=== PATIENT | male | born 1990 | race Caucasian/White ===

== ENCOUNTER 2023-11-03 00:41 | Emergency (ER) | payer OTHER, SELFPAY ==
[2023-11-03] VITALS (10 sets, daily range): BP systolic 110–128; BP diastolic 72–85; PULSE 75–85; RESP 13–16; TEMP 36.6; O2SAT 97–100; BMI 24.4
--- NOTE | 2023-11-03 00:47 | CRLHL7_ITS ---
For Patients: As a result of the Cures Act, medical imaging exams and procedure reports are released immediately into your electronic medical record. You may view this report before your referring provider. If you have questions, please contact your health care provider. INDICATION: Chest pain TECHNIQUE: Chest radiograph 1 view COMPARISON: None FINDINGS: Mediastinum: The central pulmonary arteries are near the upper limits of normal in size. The heart silhouette is normal in size and morphology. Lung: Both lungs are unremarkable in appearance. No sign of pleural effusion seen. No pneumothorax is identified. Bone and Soft tissue: Unremarkable for age. IMPRESSION: 1. No acute cardiopulmonary disease is seen. Dictated by Edgard Vieyra MD @ 11/03/2023 1:31:43 AM Dictated by: Edgard Vieyra MD @ 11/03/2023 01:32:27 (Electronically Signed)
--- NOTE | 2023-11-03 00:48 | ED_ITS ---
HPI - General Adult General Chief complaint: Syncope/Fainted Stated complaint: syncope Time Seen by Provider: 11/03/23 00:46 History of Present Illness HPI narrative: Patient is a 33-year-old woman who is having a back massage by his sandip when he felt like his lips were tingling any felt like he was going to pass out. He felt like his pulse was very slow and he nearly passed out 3 or 4 times before the ambulance arrived. He noted his pulse was in the 40s at times but did picker tender into the 60s. His initial blood pressure he states was 60 systolic. He describes no chest pain orthopnea no PND no nausea no vomiting no fevers no chills. He otherwise feeling completely normal now. He does admit to using marijuana tonight which is a daily occurrence. No drugs or alcohol otherwise. He has no chronic medical issues and no home medications. Related Data Home Medications Medication Instructions Recorded Confirmed nugenix 11/03/23 Allergies Allergy/AdvReac Type Severity Reaction Status Date / Time No Known Drug Allergies Allergy Verified 11/03/23 00:50 Review of Systems Status of ROS: Reports: 10 or more systems reviewed and unremarkable except as noted in History and below [facility] Social History Non-prescribed substance use: marijuana (any form) Exam Narrative: Exam Narrative: EXAM GENERAL: Patient appears comfortable and well. EYES: No scleral icterus. ENT: Tympanic membranes and oropharynx normal. THYROID: no thyroid nodules or thyromegaly. LYMPH: No supraclavicular or cervical lymphadenopathy. SKIN: Visible skin seen during exam normal or with benign process only. EXT: No dependent lower extremity pedal edema. HEART: Regular rate and rhythm with no murmurs, rubs, or gallops. LUNGS: Clear to auscultation bilaterally with no crackles or wheezes. ABD: Soft, non tender, non distended. PSYCH: Good eye contact, speech is not pressured. Const: Vital Signs, click to edit/add: Vital Signs - 24 hr 11/03/23 00:50 11/03/23 00:57 11/03/23 01:14 Temperature 97.8 F Pulse Rate 82 Pulse Rate [Pulse Oximeter] 75 85 Respiratory Rate 13 16 Blood Pressure Blood Pressure [Ri ght Upper Arm] 128/85 128/85 Pulse Oximetry 100 100 Oxygen Delivery Me thod Room Air 11/03/23 01:15 11/03/23 01:17 Temperature Pulse Rate 80 Pulse Rate [Pulse Oximeter] Respiratory Rate Blood Pressure 110/77 Blood Pressure [Ri ght Upper Arm] Pulse Oximetry 99 Oxygen Delivery Me thod Course Course ED Course: Patient has a normal exam. Vital signs are being collected. CBC CMP troponin D-dimer EKG chest x-ray pending. Vital Signs Vital signs: Initial Vital Signs Temperature 97.8 F 11/03/23 00:50 Temperature Source Temporal Artery Scan 11/03/23 00:50 Pulse Rate 75 11/03/23 00:50 Respiratory Rate 13 11/03/23 00:50 Blood Pressure 128/85 11/03/23 00:50 Blood Pressure Mean 99 11/03/23 00:50 Pulse Oximetry 100 11/03/23 00:50 Oxygen Delivery Method Room Air 11/03/23 00:50 Vital Signs Temperature 97.8 F 11/03/23 00:50 Pulse Rate 75 11/03/23 00:50 Respiratory Rate 13 11/03/23 00:50 Blood Pressure 128/85 11/03/23 00:50 Pulse Oximetry 100 11/03/23 00:50 Oxygen Delivery Method Room Air 11/03/23 00:50 Temperature 97.8 F 11/03/23 00:50 Pulse Rate 80 11/03/23 01:15 Respiratory Rate 16 11/03/23 00:57 Blood Pressure 110/77 11/03/23 01:17 Pulse Oximetry 99 11/03/23 01:15 Oxygen Delivery Method Room Air 11/03/23 00:50 Medical Decision Making [facility] Narrative Medical decision making narrative: Patient is a 33-year-old gentleman who had a see syncopal/presyncopal event at [facility]. Workup including D-dimer troponin EKG chest x-ray CBC comprehensive metabolic panel are all normal. Patient is asymptomatic. I do think it like the best explanation for his symptoms is vasovagal syncope. Patient was educated as to the etiology of his findings. Differential diagnosis includes but not limited to syncope arrhythmia cardiac tamponade seizure. Lab Data Labs: Lab Results 11/03/23 Range/Units 01:00 WBC 9.51 (4.50-11.00) K/uL RBC 4.44 (4.30-5.90) m/uL Hgb 13.8 (13.5-17.5) gm/dL Hct 40.7 (37.0-53.0) % MCV 92 (80-100) fL MCH 31 (26-34) pg MCHC 34 (32-36) gm/dL RDW Coeff of Debbie 11.8 (11.5-15.5) % Plt Count 279 (140-440) K/uL Neut % (Auto) 73.7 H (42.0-72.0) % Lymph % (Auto) 16.1 L (20-44) % [place] % (Auto) 7.9 (0.0-11.0) % Eos % (Auto) 1.6 (0.0-7.0) % Baso % (Auto) 0.4 (0.0-3.0) % Neut # (Auto) 7.00 (1.7-7.0) K/uL Lymph # (Auto) 1.50 (0.90-2.90) K/uL [place] # (Auto) 0.80 (0.00-0.90) K/UL Eos # (Auto) 0.15 (0.00-0.50) K/uL Baso # (Auto) 0.04 (0.00-0.30) K/uL Abs Immat Gran (auto) 0.03 (0.00-0.30) K/uL Imm/Tot Granulo (auto) 0.3 % D-Dimer Quant (PE/DVT) 0.21 (0.00-0.50) ug/ml Sodium 138 (135-149) mmol/L Potassium 4.0 (3.6-5.1) mmol/L Chloride 102 (96-114) mmol/L Carbon Dioxide 30 (20-32) mmol/L Anion Gap 6 L (7-15) mEq/L BUN 22 (5-24) mg/dL Creatinine 1.1 (0.5-1.5) mg/dL Estimated Creat Clear 99.83 Estimated GFR 90 ml/min Glucose 108 (60-115) mg/dL Calcium 9.3 (8.4-10.6) mg/dL Troponin I < 0.01 L (0.01-0.04) ng/mL Discharge Plan Discharge Clinical Impression: Vasovagal syncope Patient Disposition: Home, Self-Care Condition: Stable Instructions: Syncope (ED) Additional Instructions: Continue same care Hydrate carefully Follow up with your doctor next wee. Activity Level: No Restrictions Discharge Diet: Regular Prescriptions: No Action nugenix Stand Alone Forms: Noosh Info Instructions
[2023-11-03 01:12] LABS: Basophils Absolute Auto 0.04 K/uL (0.00-0.30); Basophils Percent Auto 0.4 % (0.0-3.0); Eosinophils Absolute Auto 0.15 K/uL (0.00-0.50); Eosinophils Percent Auto 1.6 % (0.0-7.0); Hematocrit 40.7 % (37.0-53.0); Hemoglobin* 13.8 gm/dL (13.5-17.5); Immature Granulocytes Abs Auto 0.03 K/uL (0.00-0.30); Immature Granulocytes Pct Auto 0.3 %; Lymphocytes Percent Auto 16.1 % (20-44); Mean Corpuscular HGB Conc 34 gm/dL (32-36); Mean Corpuscular Hemoglobin 31 pg (26-34); Mean Corpuscular Volume 92 fL (80-100); Monocytes Percent Auto 7.9 % (0.0-11.0); Neutrophils Percent Auto 73.7 % (42.0-72.0); Platelet Count* 279 K/uL (140-440); RDW Coefficient of Variation % 11.8 % (11.5-15.5); Red Blood Count 4.44 m/uL (4.30-5.90); White Blood Count* 9.51 K/uL (4.50-11.00)
[2023-11-03 01:15] LABS: Slide Review Reflex No
[2023-11-03 01:29] LABS: D Dimer Quantitative* 0.21 ug/ml (0.00-0.50)
[2023-11-03 01:35] LABS: Chloride* 102 mmol/L (96-114); Sodium* 138 mmol/L (135-149)
[2023-11-03 01:38] LABS: Anion Gap 6 mEq/L (7-15); Blood Urea Nitrogen* 22 mg/dL (5-24); Carbon Dioxide* 30 mmol/L (20-32); Creatinine* 1.1 mg/dL (0.5-1.5); Est. Creatinine Clearance* 99.83; Estimated Glomerular Filt Rate 90 ml/min
[2023-11-03 01:39] LABS: Calcium* 9.3 mg/dL (8.4-10.6); Glucose* 108 mg/dL (60-115)
--- NOTE | 2023-11-03 01:42 | ED.NURSE ---
patient states that he has not had any episodes since arrival.
[2023-11-03 01:43] LABS: Troponin I* < 0.01 ng/mL (0.01-0.04)
--- OUTSIDE RECORDS SUMMARY | 2023-11-03 02:00 | XMS_ITS | Clinical Summary ---
Author Name Unknown Organization [facility] Address [address] [place] [address] Care Team Providers Care Fpga Design Engineer Name Role Phone Jace Kimball MD Primary Care Provider [phone] Source Comments You are receiving this document as you are listed as the primary care provider,follow-up provider, or the patient has been referred to you for consultation.This is in compliance with the Medicare and[facility] EHR Incentive Program,which states Providers who transition their patient to another setting of careor provider of care or refers their patient to another provider of care shouldprovide summary care record for each transition of care or referral. [facility] Allergies No known active allergies Medications Medication Sig Dispensed Refills Start Date End Date Status hydrOXYzine HCl (ATARAX) 25 MG tablet Take 1-4 tablets 30-60 minutes before bed as needed for insomnia. May use 1-2 tablets as needed during the day up to 3 times daily. 90 Tablet 0 11/01/2021 Active Additional Information Patient not taking.Reported on 12/28/2022 Active Problems Problem Noted Date Diagnosed Date Psychophysiologic insomnia 11/02/2021 Anxiety 04/27/2018 Resolved Problems Problem Noted Date Diagnosed Date Resolved Date Obesity, Class I, BMI 30-34.9 09/18/2019 11/02/2021 Immunizations Name Administration Dates Next Due Tdap 11/24/2017 Family History Medical History Relation Name Comments Diabetes, Type II Father Resolved w ith diet Obesity Father Stroke Father Diabetes Mother Diabetes Maternal Grandfather Diabetes Maternal Grandmother Stroke Paternal Uncle Cancer, Colon Negative Family History Cancer, Prostate Negative Family History Relation Name Status Comments Father Alive Mother Alive Maternal Grandfather Maternal Grandmother Paternal Uncle Social History Tobacco Use Types Packs/Day Years Used Date Smoking Tobacco: Former Cigarettes 1 10 Smokeless Tobacco: Never Tobacco Cessation:Counseling Given: Not Answered Comments:occas vape Alcohol Use Standard Drinks/Week Comments Yes 1 (1 standard drink = 0.6 oz pur e alcohol) AUDIT-C Answer Date Recorded Frequency of Alcohol Consumption 2-4 times a sun09/19/2019 Average Number of Drinks 1 or 2 019 Frequency of Binge Drinking Never 09/07 PHQ-2 Answer Date Recorded PHQ-2 Score 2 11/01/2021 Sex and Gender Information Value Date Recorded Sex Assigned at Not on file Gender Identity Not on file Sexual Orientation Not on file Last Filed Vital Signs Vital Sign Reading Time Taken Comments Blood Pressure 121/77 12/28/2022 8:23 AM CDT Pulse 73 12/28/2022 8:23 AM CDT Temperature 37.1 ??C (98.8 ??F) 10/27/2010 6:57 PM CS T C: 37.1 C Respiratory Rate 16 09/18/2019 7:15 AM BROOMCORN SORTER Oxygen Saturation - - Inhaled Oxygen Concentration - - Weight 82.1 kg (181 lb) 12/28/2022 8:23 AM CDT Height 175.9 cm (5' 9.25) 11/01/2021 5:57 PM CS T Body Mass Index 26.54 11/01/2021 5:57 PM BROOMCORN SORTER Plan of Treatment Health Maintenance Due Date Last Done Comments Hep C Screening (Preventive Services) 1988 HepB (1) 1988 COVID-19 Vaccine (#1) 1988 Influenza (#1) 2023 Adult Preventive Visit 11/01/2023 2, 09/18/2019 Cholesterol 09/18/2024 09/18/2019 DTaP/Tdap/Td (2 - Tdap) 11/24/2027 11/24/2017 Zoster/Shingles (1 of 2) 2038 HIV Screening (Preventive Services) Completed 09/18/2019 HPV Vaccine Aged Out No longer eligi ble based on patient's age to complete this topic HepA Aged Out No longer eligi ble based on patient's age to complete this topic Hib Aged Out No longer eligi ble based on patient's age to complete this topic IPV (Polio) Aged Out No longer eligi ble based on patient's age to complete this topic MCV4 Aged Out No longer eligi ble based on patient's age to complete this topic Pneumococcal Aged Out No longer eligi ble based on patient's age to complete this topic Care Teams Fpga Design Engineer Relationship Specialty [place] [address] [place] [address] PCP - General Family Practice 09/18/19
--- OUTSIDE RECORDS SUMMARY | 2023-11-03 02:01 | XMS_ITS | Encounter Summary ---
Author Name Unknown Organization [facility] Address [address] [place] [address] Care Team Providers Care Glass Technician Name Role Phone Jace Kimball MD Primary Care Provider [phone] Reason for Referral * Consult/Transfer Care (Routine) - New Request Specialty Diagnoses / Procedures Referred By Terrell alvarado Referred To Contact Diagnoses Right shoulder pain, unspecified chronicity Sundar Persaud [facility] [address] [place] [address] Referral ID Status Reason Start Date Expiration Date V isits Requested Visits Authorized [id number] New Request 12/28/2022 03/28/2024 1 1 Scheduling Instructions Your clinician has recommended an appointment with [facility] Orthopaedic [place]. You can quickly make your appointment online at [email or web address]. You can also call [phone] for help scheduling your appointment. We suggest you call your health insurance company about your coverage and benefits for this appointment. Question Answer Appointment Urgency? Non-Urgent * Consult/Transfer Care (Routine) - New Request Specialty Diagnoses / Procedures Referred By Terrell alvarado Referred To Contact Diagnoses Left inguinal hernia Sundar Persaud [facility] [address] [place] [address] Referral ID Status Reason Start Date Expiration Date V isits Requested Visits Authorized [id number] New Request 12/28/2022 03/28/2024 1 1 Scheduling Instructions Your clinician has recommended an appointment with [facility]. You can quickly make your appointment online at [email or web address]. You can also call [phone] for help scheduling your appointment. We suggest you call your health insurance company about your coverage and benefits for this appointment. Question Answer Appointment Urgency? Non-Urgent Reason for Visit * Reason Comments Abdominal Pain Lower abdominal pain , pain in between bellybutton and pelvis, pt describes pain as cramping, x1 week INJURY, SHOULDER Pt injured shoulder last summer, fell on shoulder and seen in [place], pain has not resolved after 6 months Encounter Details Date Type Department Care Team Description 12/28/2022 8:20 AM CDT [facility] [address] [place] [address] Sundar Persaud, [facility] [address] [place] [address] Bilateral lower abdominal cramping (Primary Dx); Left inguinal hernia; Right shoulder pain, unspecified chronicity Social History Tobacco Use Types Packs/Day Years [...] on file Sexual Orientation Not on file documented as of this encounter Last Filed Vital Signs Vital Sign Reading Time Taken Comments Blood Pressure 121/77 12/28/2022 8:23 AM CDT Pulse 73 12/28/2022 8:23 AM CDT Temperature - - Respiratory Rate - - Oxygen Saturation - - Inhaled Oxygen Concentration - - Weight 82.1 kg (181 lb) 12/28/2022 8:23 AM CDT Height - - Body Mass Index 26.54 11/01/2021 5:57 PM RELIGION TEACHER documented in this encounter Progress Notes * Sundar Persaud, [facility] - 12/28/2022 8:20 AM CDT Chief Complaint Patient presents with Abdominal Pain Lower abdominal pain, pain in between bellybutton and pelvis, pt describes pain as cramping, x1 week INJURY, SHOULDER Pt injured shoulder last summer, fell on shoulder and seen in [place], pain has not resolved after 6 months Subjective: The patient is a 32-year-old male with medical history significant for generalized anxiety disorderand psychophysiologic insomnia among others. Patient presents to the clinic today accompanied by a female wire threader with multiple concerns. Recent bout of lower abdominal cramping which has since resolved. The patient states this was likely diet related. Notes significant improvement following changes to his diet which now comprised mainly plant based foods with decreased intake of red meat. States bowel movements are normal. No nauseaor vomiting. No hematochezia or melena stools. Patient also has concerns about possible inguinal hernia. States has been experiencing pain in bothgroins. States more noticeable with heavy lifting. Finally he has concerns about ongoing right shoulder pain. This followed a fall last summer for which he was seen in the emergency room. Patient states x-ray at the time was noted to be normal. States however pain has persisteSports Medicine for further evaluation and management. PMH: Patient Active Problem List Diagnosis Anxiety (HRC) Psychophysiologic insomnia , No past surgical history on file. Medications: Current Outpatient Medications Medication Sig Dispense Refill hydrOXYzine HCl (ATARAX) 25 MG tablet Take 1-4 tablets 30-60 minutes before bed as needed for insomnia. May use 1-2 tablets as needed during the day up to 3 times daily. (Patient not taking: Reportedon 12/28/2022) 90 Tablet 0 No current facility-administered medications for this visit. Allergies: No Known Allergies Social Hx: Social History Socioeconomic History Marital status: Spouse name: Not on file Number of children: Not on file Years of education: Not on file Highest education level: Not on file Occupational History Not on file Tobacco Use Smoking status: Former Packs/day: 1.00 Years: 10.00 Pack years: 10.00 Types: Cigarettes Smokeless tobacco: Never Tobacco comments: occas vape Vaping Use Vaping Use: Every day Substances: Flavoring, Nicotine-salt Substance and Sexual Activity Alcohol use: Yes Alcohol/week: 1.0 standard drink Types: 1 Cans of beer per week Drug use: Yes Frequency: 1.0 times per week Types: Marijuana Sexual activity: Yes Partners: Female control/protection: None Comment: of 10 years Other Topics Concern Bike Helmet Not Asked City Water Not Asked Exercise Not Asked Guns in home Not Asked Seat Belt Not Asked Special Diet Not Asked Weight Concern Not Asked Social History Narrative 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 Lives in [place] and is with a 4 year old girl and 7 month old boy. Likes to be outdoors. 11/01/2021 Social Determinants of Health Financial Resource Strain: Not on file Food Insecurity: Not on file Transportation Needs: Not on file Family Hx: Family History Problem Relation Age of Onset Diabetes Mother Obesity Father Diabetes, Type II Father Resolved with diet Stroke Father Stroke Paternal Uncle 60 Diabetes Maternal Grandmother Diabetes Maternal Grandfather Cancer, Prostate Negative Family History Cancer, Colon Negative Family History Review of Systems Pertinent items are noted in HPI. Objective: Physical Exam: BP 121/77 (BP Location: Right Arm, BP Cuff Size: Large) Pulse 73 Wt 181 lb (82.1kg) BMI 26.54 kg/m?? General appearance: alert, cooperative, no distress, appears stated age The patient appears anxious. Makes good eye contact and answers questions appropriately HEAD: Normocephalic, without obvious abnormality, atraumatic EARS: normal TM's and external ear canals AU THROAT: lips, mucosa, and tongue normal; teeth and gums normal NECK: nontender, no nuchal rigidity, no masses CHEST: Normal chest wall and respirations. Clear to auscultation. HEART: Normal S1 and S2. Regular rhythm. No murmurs, gallops, or rubs. ABDOMEN: There is a small uncomplicated left-sided inguinal hernia EXTREMITY: Extremities warm to touch and pink. Right shoulder without any obvious deformity. Patient moving right upper extremity well. No impingement signs noted Assessment: ICD-10-CM 1. Bilateral lower abdominal cramping R10.31 R10.32 2. Left inguinal hernia K40.90 Surgery Consult-Adults 3. Right shoulder pain, unspecified chronicity M25.511 Orthopaedic Consult Adult/Peds Plan: Patient does have a small uncomplicated left inguinal hernia. Pathophysiology is discussed. Discussed watchful waiting versus surgical correction. Patient wants to explore surgery. Referral to General surgery placed. Referral to Orthopedics for ongoing right shoulder pain. In the meantime okay for Tylenol Motrin as needed for pain. Avoid activities that make the pain worse. I recommend follow-up for routine physical at his convenience. Questions and concerns addressed *This note was created using voice recognition software and may contain some armored cable machine operator errors* documented in this encounter Plan of Treatment Scheduled Referrals Name Type Priority Associated Diagnoses Orde r Schedule Surgery Consult-Adults Referral Routine Left inguinal hernia Ordered: 12/28/2022 Orthopaedic Consult Adult/Peds Referral Routine Right shoulder pain, unspecified chronicity Ordered: 12/28/2022 documented as of this encounter Visit Diagnoses Diagnosis Bilateral lower abdominal cramping- Primary Abdominal pain, other specified site Left inguinal hernia Inguinal hernia without mention of obstruction or gangrene, unilateral or unspecified, (not specified as recurrent) Right shoulder pain, unspecified chronicity documented in this encounter Care Teams Glass Technician Relationship Specialty [place] [address] [place] [address] PCP - General Family Practice 09/18/19 documented as of this encounter
--- OUTSIDE RECORDS SUMMARY | 2023-11-03 02:01 | XMS_ITS | Clinical Summary ---
Author Name Unknown Organization [facility] Address [place], [place] [address] Care Team Providers Care Shoe Stamper Name Role Phone Pcp, No Primary Care Provider Unavailabl e Allergies No known active allergies Medications Medication Sig Dispensed Refills Start Date End Date Status LORazepam (ATIVAN) 0.5 mg tabIndications:Anxiet y,Tobacco use disorder Take 1 tablet by mouth 2 times daily if needed for Anxiety. 30 tablet 0 04/27/2018 Active Active Problems Problem Noted Date Diagnosed Date Anxiety 04/27/2018 Social History Tobacco Use Types Packs/Day Years Used Date Smoking Tobacco: Former Cigarettes Q uit: 04/26/2018 Smokeless Tobacco: Never Tobacco Cessation:Counseling Given: Yes Sex and Gender Information Value Date Recorded Sex Assigned at Not on file Gender Identity Not on file Sexual Orientation Not on file Obstetrics History Last Filed Vital Signs Vital Sign Reading Time Taken Comments Blood Pressure 119/82 04/27/2018 2:01 PM CDT Pulse 71 04/27/2018 2:01 PM CDT Temperature - - Respiratory Rate - - Oxygen Saturation 98% 04/27/2018 2:01 PM CDT Inhaled Oxygen Concentration - - Weight 105.2 kg (232 lb) 04/27/2018 2:01 PM CDT Height - - Body Mass Index - - Plan of Treatment Health Maintenance Due Date Last Done Comments COVID-19 vaccine series (#1) 1988 Tdap 1999 Depression screening for age 12+ 2000 HIV for age 15-65 2003 BMI (ht and wt on same day) for age 18+ 2006 Hepatitis C screening for ag e 18-79 2006 Tetanus booster 2008 Influenza for age 9-49 06/08/2023 Lipids for age 35-44 2023 Pneumococcal series for age 6-64 Aged Out No longer eligible based on patient's age to complete this topic Care Teams Shoe Stamper Relationship Specialty Start Date End Date Pcp, No . PCP - General 04/27/18
== END 2023-11-03 02:00 | disposition home or self-care (01) ==
LOC: ED 01:58
PROVIDERS: Emergency Provider Internal Medicine
DX: R55 Syncope and collapse (principal)
CPT/HCPCS: 36415; 71045; 80048; 84484; 85025; 85379; 93005; 99283; 99284